=== PATIENT | female | born 1960 | race Asian ===

== ENCOUNTER 2021-02-10 11:10 | Emergency (ER) | payer BC, OTHER ==
[~2021-02-10] VITALS: Ht 149.9 cm; Wt 40.4 kg
--- NOTE | 2021-02-10 11:15 | NUR ---
[id number], from work, high blood pressure and dizzy. on room air, breathing evenly and unlabored. Connected to the monitor and pulse ox. Kept comfortable, will continue to monitor accordingly.
--- NOTE | 2021-02-10 11:34 | NUR ---
patient wheeled to ct accompanied by [employer].
--- NOTE | 2021-02-10 11:39 | NUR ---
patient came back from ct
[2021-02-10 12:15] VITALS: BP 153/77
--- NOTE | 2021-02-10 12:15 | NUR ---
Patient discharged to home in stable condition. Written and verbal after care instructions given. Patient verbalizes understanding of instruction.
== END 2021-02-10 12:15 | disposition home or self-care (01) ==
LOC: ER 11:13
DX: I10 Essential (primary) hypertension (principal); R42 Dizziness and giddiness
CPT/HCPCS: 70450-TC